=== PATIENT | male | born 1950 | race Caucasian/White ===

== ENCOUNTER → 2016-03-12 | Outpatient (CLI) | payer BC, OTHER | LOC: HYPER 03-07 08:46 | DX: E11.621 Type 2 diabetes mellitus with foot ulcer (principal); L97.512 Non-pressure chronic ulcer of other part of right foot with fat layer exposed; I10 Essential (primary) hypertension; Z79.84 Long term (current) use of oral hypoglycemic drugs; Z89.421 Acquired absence of other right toe(s); Z89.512 Acquired absence of left leg below knee ==

== ENCOUNTER → 2016-05-30 | Outpatient (CLI) | payer BC, OTHER | LOC: HYPER 07:17 | DX: E11.621 Type 2 diabetes mellitus with foot ulcer (principal); L97.511 Non-pressure chronic ulcer of other part of right foot limited to breakdown of skin; E11.69 Type 2 diabetes mellitus with other specified complication; I10 Essential (primary) hypertension; Z79.84 Long term (current) use of oral hypoglycemic drugs ==

== ENCOUNTER → 2016-06-26 | Outpatient (CLI) | payer BC, OTHER | LOC: HYPER 06-25 11:27 | DX: E11.621 Type 2 diabetes mellitus with foot ulcer (principal); L97.512 Non-pressure chronic ulcer of other part of right foot with fat layer exposed; S98.211D Complete traumatic amputation of two or more right lesser toes, subsequent encounter; I10 Essential (primary) hypertension; Z79.84 Long term (current) use of oral hypoglycemic drugs ==

== ENCOUNTER → 2016-07-18 | Outpatient (CLI) | payer BC, OTHER | LOC: HYPER 07:10 | DX: E11.621 Type 2 diabetes mellitus with foot ulcer (principal); L97.512 Non-pressure chronic ulcer of other part of right foot with fat layer exposed; I10 Essential (primary) hypertension; Z89.512 Acquired absence of left leg below knee; Z89.421 Acquired absence of other right toe(s); Z79.84 Long term (current) use of oral hypoglycemic drugs ==

== ENCOUNTER → 2016-08-08 | Outpatient (CLI) | payer BC, OTHER | LOC: HYPER 07:04 | DX: E11.621 Type 2 diabetes mellitus with foot ulcer (principal); L97.512 Non-pressure chronic ulcer of other part of right foot with fat layer exposed; I10 Essential (primary) hypertension; Z79.84 Long term (current) use of oral hypoglycemic drugs; Z89.512 Acquired absence of left leg below knee; Z89.421 Acquired absence of other right toe(s) ==

== ENCOUNTER → 2016-08-22 | Outpatient (CLI) | payer BC, OTHER | LOC: HYPER 07:04 | DX: E11.621 Type 2 diabetes mellitus with foot ulcer (principal); L97.512 Non-pressure chronic ulcer of other part of right foot with fat layer exposed; S98.211D Complete traumatic amputation of two or more right lesser toes, subsequent encounter; Z79.84 Long term (current) use of oral hypoglycemic drugs; Z89.431 Acquired absence of right foot; Z89.512 Acquired absence of left leg below knee; X58.XXXD Exposure to other specified factors, subsequent encounter ==

== ENCOUNTER → 2016-09-05 | Outpatient (CLI) | payer BC, OTHER ==
[~2016-09-05] MED LIST: CLEOCIN HCL300 MG PO; GLUCOTROL XL10 MG PO; HYDROCHLOROTHIA25 M2 PO; INVOKANA100 MG PO; IRON325 PO; JANUVIA100 MG PO; MELOXICAM15 MG PO; METFORMIN HCL500 MG PO; MULTIVITAMINS1 EAC7 PO; NEURONTIN600 MG PO; PRINIVIL40 MG PO; TYLENOL325 MG PO
== END ==
LOC: HYPER 07:02
DX: E11.621 Type 2 diabetes mellitus with foot ulcer (principal); L97.512 Non-pressure chronic ulcer of other part of right foot with fat layer exposed; I10 Essential (primary) hypertension; Z89.512 Acquired absence of left leg below knee; Z79.84 Long term (current) use of oral hypoglycemic drugs; Z89.421 Acquired absence of other right toe(s)

== ENCOUNTER 2016-09-20 06:08 | Inpatient (IN) | payer BC, OTHER ==
[~2016-09-20] VITALS: Ht 172.7 cm; Wt 106.6 kg
--- NOTE | ~2016-09-20 | S ---
[facility] [place] [address] SURGICAL PATH RPT PROCEDURE Name: KMUAR BURT Room #: 542-P DIS IN M.R.#: [id number] Admission: 09/20/16 Date of : 52 Discharge: 09/22/16 Report #: [id number] Path Case #: [id number] PATHOLOGY REPORT COLLECTION DATE: 09/20/2016 RECEIVED DATE: 09/21/2016 SUBMITTING PHYS: Dr. Pedro Cardenas OTHER PHYS: TRUDI Wiggins SPECIMEN(S) RECEIVED: A.Right third metatarsal * * * * * * * * * * * * FINAL DIAGNOSIS: Bone, right third metatarsal ray, amputation: - Acute inflammation extending into underlying bone associated with remodeled bone, compatible with the provided history of osteomyelitis. - Bone margins showing viable and unremarkable bone. (IUV:pit; 09/24/2016) PATHOLOGIST: Cici Rich M.D. REPORT ELECTRONICALLY SIGNED BY: Cici Rich M.D. DATE/TIME: 09/24/2016 16:07 * * * * * * * * * * * * GROSS PATHOLOGY: The specimen is received in formalin labeled "Kumar uBrt, right third metatarsal ray". Received is a segment of bone displaying one block margin, consistent with transection and one smooth, convex, cartilaginous covered margin measuring 4.4 x 1.7 x 1.4 cm in greatest dimensions. The blunt transected margin is inked black. A full-thickness longitudinal cross-section is submitted in cassettes A1 and A2, submitted from proximal to distal aspects, following decalcification. (CAA; 09/22/2016) CLINICAL HISTORY: Right third metatarsal osteomyelitis INITIAL CPT CODE(S): A; 05143, 28247 Professional services performed by [facility] at [facility] [address], [place] [address] [facility] [address] [place] [address] SURGICAL PATH RPT PROCEDURE Name: KUMAR BURT Room #: 542-P DIS IN M.R.#: [id number] Admission: 09/20/16 Date of : 52 Discharge: 09/22/16 Report #: [id number] Path Case #: [id number] [facility] at [address] [place] [address], [place] [address]. [facility] [address] [place] [address] PHONE: [phone] DIRECTOR: Lamin Boyer M.D. * * * END OF REPORT * * *
--- NOTE | ~2016-09-20 | HC ---
[facility] [place] [address] CONSULTATION Name: DILIP BURT Room #: 542-P ADM IN M.R.#: [id number] Admission: 09/20/16 Attend Phys: Pedro Cardenas MD Discharge: Date of : 52 Report #: [id number] THIS REPORT FOR: //name// CC: Pedro VALENCIA REASON FOR CONSULTATION: I was asked to evaluate concerning right foot third metatarsal osteomyelitis. HISTORY OF PRESENT ILLNESS: The patient is a 65-year-old with diabetes, peripheral neuropathy who has had a previous left below knee amputation. He had right foot surgery in early after traumatic injury. Subsequently, underwent a fourth ray amputation and third toe amputation. Since then, he has developed callus formation over the plantar aspect of his foot over the third metatarsal. This has required multiple debridements. He has had several episodes of infections. Over the last 2 months, he has noticed increased pain and drainage to the plantar aspect of his right foot. Outpatient workup in August revealed MRSA along with mixed jessica from his wound culture. This organism was sensitive to vancomycin, rifampin, Zyvox and gentamicin. MRI scan showed right third metatarsal head cortical erosion consistent with osteomyelitis. Initially treated with clindamycin, I evaluated him in the outpatient clinic on 09/13/2016. At that time, we made arrangements for IV antibiotic therapy including vancomycin. This was started preoperatively several days prior to his admission. Yesterday, he underwent third ray amputation and second metatarsal head resection. No new culture results were obtained. Postoperatively, he remains stable. LABORATORY STUDIES: Noted sedimentation rate of 3, hemoglobin 15, white count 7.4, creatinine of 1 on 09/17/2016. ALLERGIES: None known. MEDICATIONS: As noted on his MAR including the vancomycin 1 gram IV q. 12 hours. PAST MEDICAL HISTORY: Diabetes, hypertension and the above noted lower extremity surgeries. FAMILY HISTORY: Noncontributory. REVIEW OF SYSTEMS: No cardiopulmonary, GI or complaints. PHYSICAL EXAMINATION: Afebrile, hemodynamically stable. He is alert, cooperative, pleasant, in no acute distress. Right upper extremity PICC site was unremarkable. Right foot was in surgical wrap, dressings were dry. Toes 1 and 2 were warm with reasonable capillary refill. Left below knee amputation unremarkable. [address] [address] CONSULTATION Name: DILIP BURT Room #: 542- ADM IN M.R.#: [id number] Admission: 09/20/16 Attend Phys: Pedro Cardenas MD Discharge: Date of : 52 Report #: [id number] IMPRESSION: A 65-year-old with underlying diabetes, peripheral neuropathy, osteomyelitis of his third metatarsal head with involvement also of the second metatarsal. Methicillin resistant Staphylococcus aureus predominant organism here. Postoperative day now #1. PLAN: Recommend continuing vancomycin planning 4-6 weeks. We will arrange outpatient therapy. We will check vancomycin trough tomorrow morning. The patient will have follow up in the ID Clinic next week. This was discussed with nursing staff as well as the patient and his family. <ELECTRONICALLY SIGNED> By: Luke Ceja MD 09/21/16 1551 1202 1419 Luke Ceja MD /nt
--- NOTE | ~2016-09-20 | EKG ---
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 : 1950 Requested By: Pedro Cardenas Order Number: [id number] MD: Feliciano Santana Measurements Intervals [place] Rate: 89 P: 26 MO: 222 QRS: -80 QRSD: 155 T: 4 QT: 398 QTc: 485 Interpretive Statements Sinus rhythm Multiform ventricular premature complexes Prolonged [place] interval Right bundle branch block Inferior infarct, old No previous ECG available for comparison Electronically Signed On 09-21-2016 8:28:06 CDT by Feliciano Santana [email or web address] <ELECTRONICALLY SIGNED> By: Feliciano Santana MD, [facility] 09/21/16 0828 1231 1231 Feliciano Santana MD, [facility] /EPI
--- NOTE | ~2016-09-20 | HC ---
[facility] [place] [address] [place] [address] CONSULTATION Name: DILIP BURT Room #: 542-P ADM IN M.R.#: [id number] Admission: 09/20/16 Attend Phys: Pedro Cardneas MD Discharge: Date of : 52 Report #: [id number] THIS REPORT FOR: //name// CC: Pedro AU EADOR DATE OF SERVICE: 09/21/2016 WOUND CARE CONSULTATION CHIEF COMPLAINT: Osteomyelitis and diabetic foot ulceration on the right foot. HISTORY OF PRESENT ILLNESS: This is a 65-year-old white male patient with history of diabetes mellitus and peripheral neuropathy with a plantar ulcer involving his right foot. He has had a previous left below-knee amputation and has had a long-standing plantar neuropathic ulceration to his right foot. He has undergone previous third and fourth toe amputations. He was recently found to have osteomyelitis and was admitted for surgical debridement that was undertaken yesterday by Dr. Pedro Cardenas. The patient is in good spirits today. He has a drain and sutures in place. PAST MEDICAL HISTORY: Diabetes with peripheral neuropathy, chronic ulceration due to peripheral neuropathy and diabetes to the right foot, status post previous left below-knee amputation. MEDICATIONS: Gabapentin and hydrocodone. SOCIAL HISTORY: Negative for alcohol or tobacco use. He is . REVIEW OF SYSTEMS: CONSTITUTIONAL: The patient denies fever, chills or weight loss. NEUROLOGICAL: The patient denies focal weakness, but does have peripheral neuropathy. ENT: The patient denies earache, nasal drainage or sore throat. CARDIOVASCULAR: The patient denies chest pain, palpitations or diaphoresis. PULMONARY: The patient denies cough or shortness of breath. GASTROINTESTINAL: The patient denies nausea, vomiting, diarrhea or abdominal pain. ORTHOPEDIC: The patient denies pain in his foot. He is aware of the ulceration and the recent surgical incision. The patient's other systems on 12-point review of systems are negative. FAMILY HISTORY: Noncontributory. PHYSICAL EXAMINATION: VITAL SIGNS: At this time include pulse of 64, respiratory rate of 18, blood [facility] [address] [place] [address] CONSULTATION Name: DILIP BURT Room #: 542-P ADM IN M.R.#: [id number] Admission: 09/20/16 Attend Phys: Pedro Cardenas MD Discharge: Date of : 52 Report #: [id number] pressure 127/85 and temperature 98.3. GENERAL: This is a chronically ill-appearing male patient who appears to be in minimal distress. HEENT: Examination of the head is normocephalic. Nose and throat are clear. NECK: Supple. LUNGS: Clear. HEART: Regular rate and rhythm. ABDOMEN: Soft. Bowel sounds present. EXTREMITIES: Lower extremities demonstrate previous left below-knee amputation that is well healed. Right foot demonstrates surgically absent third and fourth toes. There is an incision along the dorsal aspect of the left foot. There is a [place] drain in place. There is a circular ulceration on the plantar aspect that is relatively clean with slight amount of callus. There is no undermining or tunneling appreciated at this time. CLINICAL IMPRESSION: 1. Ulceration of the right foot due to diabetes. 2. Diabetes with peripheral neuropathy. 3. Acute versus chronic osteomyelitis of the right foot, now status post surgical debridement. RECOMMENDATIONS: At this point in time, the patient will be continued on antibiotic therapy. He will have followup with Dr. Cardenas in approximately 1 week. We will continue to follow him here in the wound clinic, to follow up after he sees Dr. Cardenas. We will continue with topical dressings with a silver alginate and/or silver foam to the plantar aspect. Minimal weightbearing for transfers only. I appreciate being asked to see him in consultation. By: 1040 1225 Jordan Disla MD /nt
[2016-09-20 12:23] LABS: HEMATOCRIT 47.6 % (42.0-52.0); HEMOGLOBIN 16.1 gm/dL (14.0-18.0); MCH 27.2 pg (26.0-34.0); MCHC 33.9 g/dL (28.0-37.0); MCV 80.2 fL (80.0-100.0); RBC 5.93 mil/uL (4.50-6.00); WBC 6.7 thou/uL (4.0-11.0)
[2016-09-20 12:28] LABS: CALCIUM 9.3 mg/dL (8.5-10.1); CREATININE 0.9 mg/dL (0.7-1.3); POTASSIUM 4.1 mmol/L (3.5-5.1)
[2016-09-20 13:00] VITALS: BP 117/81
[2016-09-20 19:55] VITALS: BP 103/62
[2016-09-21 03:45] VITALS: BP 118/68
[2016-09-21 07:22] VITALS: BP 127/85
[2016-09-21] MEDS ORDERED: PERCOCET PO (07:30)
[2016-09-21 08:15] LABS: HEMATOCRIT 44.8 % (42.0-52.0); HEMOGLOBIN 14.8 gm/dL (14.0-18.0)
[2016-09-21 14:59] VITALS: BP 127/85
[2016-09-21 16:01] VITALS: BP 146/80
[2016-09-21 19:36] VITALS: BP 111/53
[2016-09-22 03:33] VITALS: BP 131/75
[2016-09-22 07:55] VITALS: BP 142/85
[2016-09-22 12:35] VITALS: BP 127/85
[2016-09-22] MEDS ORDERED: VANCO 1 GR1 GM/250 M IV (12:43)
== END 2016-09-22 16:15 | disposition home or self-care (01) | DRG 617 ==
LOC: TBA 06:08 → 5S 06:08 → PRE 14:18 → 5S 17:02
PROVIDERS: Orthopaedic Surgery Foot and Ankle Surgery
PROC: 0QBN0ZZ Excision of Right Metatarsal, Open Approach (ICD-10-PCS; principal; 2016-09-20)
PROC: 0Y6M0ZC Detachment at Right Foot, Partial 3rd Ray, Open Approach (ICD-10-PCS; principal; 2016-09-20)
DX: E11.69 Type 2 diabetes mellitus with other specified complication (principal); M86.171 Other acute osteomyelitis, right ankle and foot; E11.42 Type 2 diabetes mellitus with diabetic polyneuropathy; I10 Essential (primary) hypertension; E11.621 Type 2 diabetes mellitus with foot ulcer; K21.9 Gastro-esophageal reflux disease without esophagitis; M19.90 Unspecified osteoarthritis, unspecified site; B95.62 Methicillin resistant Staphylococcus aureus infection as the cause of diseases classified elsewhere; Z79.899 Other long term (current) drug therapy; Z79.4 Long term (current) use of insulin; Z89.512 Acquired absence of left leg below knee; Z89.421 Acquired absence of other right toe(s)
CPT/HCPCS: 10785; 50010; 50101; 50386; 50951; 56525; 57091; 62110; 62900; 70005

== ENCOUNTER → 2016-09-27 | Outpatient (CLI) | payer BC, OTHER ==
[~2016-09-27] MED LIST changes: +PERCOCET PO; +VANCO 1 GR1 GM/250 M IV
== END ==
LOC: HYPER 07:10
DX: T81.89XD Other complications of procedures, not elsewhere classified, subsequent encounter (principal); E11.621 Type 2 diabetes mellitus with foot ulcer; L97.512 Non-pressure chronic ulcer of other part of right foot with fat layer exposed; I10 Essential (primary) hypertension; Z79.84 Long term (current) use of oral hypoglycemic drugs; Z89.512 Acquired absence of left leg below knee; Z89.421 Acquired absence of other right toe(s); Y83.8 Other surgical procedures as the cause of abnormal reaction of the patient, or of later complication, without mention of misadventure at the time of the procedure

== ENCOUNTER → 2016-10-11 | Outpatient (CLI) | payer BC, OTHER | LOC: HYPER 07:10 | DX: T81.89XD Other complications of procedures, not elsewhere classified, subsequent encounter (principal); E11.621 Type 2 diabetes mellitus with foot ulcer; L97.512 Non-pressure chronic ulcer of other part of right foot with fat layer exposed; I10 Essential (primary) hypertension; Z79.84 Long term (current) use of oral hypoglycemic drugs; Z79.2 Long term (current) use of antibiotics; Z89.512 Acquired absence of left leg below knee; Z89.431 Acquired absence of right foot; Y83.8 Other surgical procedures as the cause of abnormal reaction of the patient, or of later complication, without mention of misadventure at the time of the procedure ==

== ENCOUNTER → 2016-10-19 | Outpatient (CLI) | payer BC, OTHER | LOC: HYPER 07:52 | DX: E11.621 Type 2 diabetes mellitus with foot ulcer (principal); L97.512 Non-pressure chronic ulcer of other part of right foot with fat layer exposed; E11.69 Type 2 diabetes mellitus with other specified complication; Z79.84 Long term (current) use of oral hypoglycemic drugs; I10 Essential (primary) hypertension; Z89.512 Acquired absence of left leg below knee; Z89.421 Acquired absence of other right toe(s); Z79.2 Long term (current) use of antibiotics ==

== ENCOUNTER → 2019-05-27 | Outpatient (CLI) | payer OTHER | LOC: SJCVCIMAG 11:14 | DX: I87.2 Venous insufficiency (chronic) (peripheral) (principal); S88.119A Complete traumatic amputation at level between knee and ankle, unspecified lower leg, initial encounter; I10 Essential (primary) hypertension; E11.9 Type 2 diabetes mellitus without complications; E78.00 Pure hypercholesterolemia, unspecified; Z79.899 Other long term (current) drug therapy; X58.XXXA Exposure to other specified factors, initial encounter; Y93.89 Activity, other specified; Y92.89 Other specified places as the place of occurrence of the external cause; Y99.8 Other external cause status ==

== ENCOUNTER → 2019-06-02 | Outpatient (CLI) | payer OTHER ==
[~2019-06-02] VITALS: Ht 172.7 cm; Wt 98.0 kg
[~2019-06-02] MED LIST changes: +GLUCOTROL10 MG PO; +GRALISE600 MG PO; +LIPITOR40 MG PO; +METFORMIN HCL500 M3 PO; +ZESTRIL40 MG PO
[2019-06-02 11:22] VITALS: BP 118/72
[2019-06-02 11:31] LABS: ABSOLUTE NEUTROPHILS 3.1 thou/uL (1.4-8.2); BASOPHILS 0.9 % (0.0-2.0); EOSINOPHILS 1.5 % (0.0-3.0); HEMATOCRIT 48.8 % (42.0-52.0); HEMOGLOBIN 16.2 gm/dL (14.0-18.0); LYMPHOCYTES 31.8 % (24.0-44.0); MCH 28.1 pg (26.0-34.0); MCHC 33.2 g/dL (28.0-37.0); MCV 84.5 fL (80.0-100.0); MONOCYTES 8.8 % (1.0-8.0); PLATELET COUNT 157 thou/uL (150-400); RBC 5.78 mil/uL (4.50-6.00); WBC 5.4 thou/uL (4.0-11.0)
[2019-06-02 11:38] LABS: CREATININE 0.9 mg/dL (0.7-1.3); POTASSIUM 4.1 mmol/L (3.5-5.1)
== END | disposition home or self-care (01) ==
LOC: CATH 08:53
PROVIDERS: Nuclear Medicine Nuclear Cardiology
DX: I87.2 Venous insufficiency (chronic) (peripheral) (principal); I87.1 Compression of vein; I10 Essential (primary) hypertension; E11.9 Type 2 diabetes mellitus without complications; K21.9 Gastro-esophageal reflux disease without esophagitis; Z98.890 Other specified postprocedural states; Z79.899 Other long term (current) drug therapy; Z98.84 Bariatric surgery status; Z89.512 Acquired absence of left leg below knee

== ENCOUNTER → 2020-12-15 | Outpatient (CLI) | payer OTHER | LOC: HYPER 07:22 | PROVIDERS: ATTEND Emergency Medicine | DX: E11.621 Type 2 diabetes mellitus with foot ulcer (principal); L97.512 Non-pressure chronic ulcer of other part of right foot with fat layer exposed; E11.40 Type 2 diabetes mellitus with diabetic neuropathy, unspecified; R21 Rash and other nonspecific skin eruption; L84 Corns and callosities; E11.69 Type 2 diabetes mellitus with other specified complication; I10 Essential (primary) hypertension; Z79.84 Long term (current) use of oral hypoglycemic drugs; Z89.512 Acquired absence of left leg below knee; Z89.431 Acquired absence of right foot; Z79.899 Other long term (current) drug therapy ==

== ENCOUNTER → 2021-01-12 | Outpatient (CLI) | payer OTHER | LOC: HYPER 09:06 | PROVIDERS: ATTEND Emergency Medicine | DX: E11.621 Type 2 diabetes mellitus with foot ulcer (principal); L97.512 Non-pressure chronic ulcer of other part of right foot with fat layer exposed; E11.40 Type 2 diabetes mellitus with diabetic neuropathy, unspecified; R21 Rash and other nonspecific skin eruption; L84 Corns and callosities; E11.69 Type 2 diabetes mellitus with other specified complication; I10 Essential (primary) hypertension; K21.9 Gastro-esophageal reflux disease without esophagitis; Z79.84 Long term (current) use of oral hypoglycemic drugs; Z89.512 Acquired absence of left leg below knee; Z89.431 Acquired absence of right foot ==

== ENCOUNTER → 2021-01-19 | Outpatient (CLI) | payer OTHER | LOC: HYPER 09:04 | PROVIDERS: ATTEND Emergency Medicine | DX: E11.621 Type 2 diabetes mellitus with foot ulcer (principal); L97.412 Non-pressure chronic ulcer of right heel and midfoot with fat layer exposed; L97.512 Non-pressure chronic ulcer of other part of right foot with fat layer exposed; E11.40 Type 2 diabetes mellitus with diabetic neuropathy, unspecified; L84 Corns and callosities; R21 Rash and other nonspecific skin eruption; E11.69 Type 2 diabetes mellitus with other specified complication; I10 Essential (primary) hypertension; K21.9 Gastro-esophageal reflux disease without esophagitis; Z79.84 Long term (current) use of oral hypoglycemic drugs; Z89.512 Acquired absence of left leg below knee; Z89.431 Acquired absence of right foot ==

== ENCOUNTER → 2021-01-19 | Outpatient (CLI) | payer OTHER | LOC: SJCVCIMAG 09:25 | PROVIDERS: ATTEND Nuclear Medicine Nuclear Cardiology | DX: S88.119A Complete traumatic amputation at level between knee and ankle, unspecified lower leg, initial encounter (principal); I87.2 Venous insufficiency (chronic) (peripheral); I73.9 Peripheral vascular disease, unspecified; I10 Essential (primary) hypertension; E78.00 Pure hypercholesterolemia, unspecified; M79.89 Other specified soft tissue disorders; E11.9 Type 2 diabetes mellitus without complications; I45.2 Bifascicular block; R94.31 Abnormal electrocardiogram [ECG] [EKG]; R00.2 Palpitations; E78.5 Hyperlipidemia, unspecified; Z79.84 Long term (current) use of oral hypoglycemic drugs; Z79.899 Other long term (current) drug therapy; X58.XXXA Exposure to other specified factors, initial encounter; Y93.89 Activity, other specified; Y92.89 Other specified places as the place of occurrence of the external cause; Y99.8 Other external cause status ==

== ENCOUNTER → 2021-02-02 | Outpatient (CLI) | payer OTHER | LOC: HYPER 10:09 | PROVIDERS: ATTEND Emergency Medicine | DX: E11.621 Type 2 diabetes mellitus with foot ulcer (principal); L97.412 Non-pressure chronic ulcer of right heel and midfoot with fat layer exposed; L97.512 Non-pressure chronic ulcer of other part of right foot with fat layer exposed; L84 Corns and callosities; E11.40 Type 2 diabetes mellitus with diabetic neuropathy, unspecified; R21 Rash and other nonspecific skin eruption; E11.69 Type 2 diabetes mellitus with other specified complication; I10 Essential (primary) hypertension; K21.9 Gastro-esophageal reflux disease without esophagitis; Z79.84 Long term (current) use of oral hypoglycemic drugs; Z89.512 Acquired absence of left leg below knee; Z89.431 Acquired absence of right foot ==

== ENCOUNTER → 2021-02-16 | Outpatient (CLI) | payer OTHER | LOC: HYPER 09:18 | PROVIDERS: ATTEND Emergency Medicine | DX: E11.621 Type 2 diabetes mellitus with foot ulcer (principal); L97.412 Non-pressure chronic ulcer of right heel and midfoot with fat layer exposed; L97.512 Non-pressure chronic ulcer of other part of right foot with fat layer exposed; L84 Corns and callosities; E11.40 Type 2 diabetes mellitus with diabetic neuropathy, unspecified; E11.69 Type 2 diabetes mellitus with other specified complication; I10 Essential (primary) hypertension; K21.9 Gastro-esophageal reflux disease without esophagitis; Z89.512 Acquired absence of left leg below knee; Z89.431 Acquired absence of right foot ==

== ENCOUNTER → 2021-03-16 | Outpatient (CLI) | payer OTHER | LOC: HYPER 08:16 | PROVIDERS: ATTEND Emergency Medicine | DX: E11.621 Type 2 diabetes mellitus with foot ulcer (principal); L97.412 Non-pressure chronic ulcer of right heel and midfoot with fat layer exposed; L97.512 Non-pressure chronic ulcer of other part of right foot with fat layer exposed; L84 Corns and callosities; E11.40 Type 2 diabetes mellitus with diabetic neuropathy, unspecified; E11.69 Type 2 diabetes mellitus with other specified complication; I10 Essential (primary) hypertension; K21.9 Gastro-esophageal reflux disease without esophagitis; Z89.512 Acquired absence of left leg below knee; Z89.431 Acquired absence of right foot; Z79.84 Long term (current) use of oral hypoglycemic drugs ==

== ENCOUNTER → 2021-04-03 | Outpatient (CLI) | payer OTHER | LOC: HYPER 10:04 | PROVIDERS: ATTEND Emergency Medicine | DX: E11.621 Type 2 diabetes mellitus with foot ulcer (principal); L97.512 Non-pressure chronic ulcer of other part of right foot with fat layer exposed; E11.42 Type 2 diabetes mellitus with diabetic polyneuropathy; E11.69 Type 2 diabetes mellitus with other specified complication; L84 Corns and callosities; I10 Essential (primary) hypertension; Z79.4 Long term (current) use of insulin; Z79.899 Other long term (current) drug therapy; Z89.512 Acquired absence of left leg below knee; Z89.431 Acquired absence of right foot ==

== ENCOUNTER → 2021-04-26 | Outpatient (CLI) | payer OTHER | LOC: HYPER 08:07 | PROVIDERS: ATTEND Emergency Medicine | DX: E11.621 Type 2 diabetes mellitus with foot ulcer (principal); L97.512 Non-pressure chronic ulcer of other part of right foot with fat layer exposed; E11.40 Type 2 diabetes mellitus with diabetic neuropathy, unspecified; E11.69 Type 2 diabetes mellitus with other specified complication; L84 Corns and callosities; I10 Essential (primary) hypertension; Z79.84 Long term (current) use of oral hypoglycemic drugs; Z79.899 Other long term (current) drug therapy; Z79.4 Long term (current) use of insulin; Z89.422 Acquired absence of other left toe(s) ==